=== PATIENT | male | born 1960 | race Two or more races ===

== ENCOUNTER 2020-02-12 11:19 | Inpatient (IN) | payer OTHER ==
[~2020-02-12] VITALS: Ht 172.7 cm; Wt 116.4 kg
[2020-02-12] MEDS ORDERED: SODIUM CHLORIDE 0.9% 500 ML IVB ONE (11:32)
[2020-02-12 12:04] LABS: Basophils # (auto) 0 10 ^3/uL (0-0.2); Basophils % (auto) 0.2 % (0.0-2.0); Eosinophils # (auto) 0 10 ^3/uL (0-0.8); Eosinophils % (auto) 0.3 % (0.0-7.0); Hematocrit 42.1 % (41.0-53.0); Hemoglobin 14.2 g/dL (13.5-17.5); Lymphocytes # (auto) 2.5 10 ^3/uL (0.4-5.4); Lymphocytes % (auto) 22.5 % (10.0-50.0); Mean Corpuscular Hemoglobin 29.9 pg (28.0-32.0); Mean Corpuscular Hgb Conc. 33.8 g/dL (32.0-36.0); Mean Corpuscular Volume 88.3 fL (80.0-100.0); Monocytes # (auto) 0.8 10 ^3/uL (0-1.3); Monocytes % (auto) 7.4 % (0.0-12.0); Neutrophils # (auto) 7.7 10 ^3/uL (1.6-8.6); Neutrophils % (auto) 69.6 % (37.0-80.0); Nucleated Red Blood Cells % 0.1 %; Platelet Count (auto) 303 10^3/uL (140-450); Red Blood Cells 4.77 10^6/uL (4.5-5.90); Red Cell Distribution Width 13.8 % (11.8-14.3)
[2020-02-12 12:20] LABS: Albumin 3.8 g/dL (3.4-5.0); Anion Gap 8 (5-15); Blood Alcohol < 3.0 mg/dL (0-5); Blood Urea Nitrogen 13 mg/dL (7-18); Calcium 8.6 mg/dL (8.5-10.1); Carbon Dioxide 22 mmol/L (21-32); Chloride 108 mmol/L (98-107); Glucose 110 mg/dL (74-106); Magnesium 2.4 mg/dL (1.6-2.6); Sodium 138 mmol/L (136-145)
[2020-02-12 12:24] LABS: Alanine Aminotransferase 23 U/L (16-61); Alkaline Phosphatase 73 U/L (45-117); Aspartate Aminotransferase 20 U/L (15-37); BUN/Creatinine Ratio 10.7; Bilirubin, Total 0.6 mg/dL (0.2-1.0); GFR African American 79 mL/min; GFR Non-African American 66 mL/min; Total Protein 8.3 g/dL (6.4-8.2)
[2020-02-12 13:34] LABS: Urine Bacteria NONE SEEN /hpf (None Seen); Urine Blood Negative /uL (Negative); Urine Hyaline Cast FEW /lpf (0 - 2); Urine Mucus FEW (None Seen); Urine Specific Gravity 1.024 (1.001-1.035); Urine Sperm PRESENT /hpf (None Seen); Urine WBC 11 /hpf (0 - 3)
[2020-02-12 13:49] LABS: Alcohol, Urine < 3.0 mg/dL (0-10); Amphetamine Screen, Urine NEGATIVE (NEGATIVE); Barbiturate Scree,Urine NEGATIVE (NEGATIVE); Benzodiazephine Screen, Urine NEGATIVE (NEGATIVE); Cannabinoid Screen, Urine NEGATIVE (NEGATIVE); Cocaine Screen, Urine NEGATIVE (NEGATIVE); Opiate Scree,Urine NEGATIVE (NEGATIVE); Phencyclidine Screen, Urine NEGATIVE (NEGATIVE)
[2020-02-12] MEDS ORDERED: KETOROLAC TROMETH 30 MG/ML 1ML VIAL IV ONE (14:15)
[2020-02-12] MEDS ORDERED: NITROGLYCERIN 0.4 MG SL TAB SL PRN (14:30)
[2020-02-12] MEDS ORDERED: MORPHINE SULF INJ 2 MG/ML SYRINGE 1ML IV PRN (14:30)
[2020-02-12 16:10] VITALS: BP 154/94
[2020-02-12] MEDS: HYDROcodone-ACET 10/325MG TAB PO PRN (18:01)
[2020-02-12 22:00] VITALS: BP 141/88
[2020-02-13] VITALS (11 sets, daily range): BP systolic 129–178; BP diastolic 68–111
[2020-02-13] MEDS: HYDROcodone-ACET 10/325MG TAB PO PRN ×2 (03:48→08:17)
[2020-02-13] MEDS ORDERED: IOHEXOL 350 MG/ML 100ML IJ ONE (10:54)
[2020-02-13] MEDS ORDERED: ADENOSINE 97 MG in GIVE UN-DILUTED 0 ML IV STA (12:08)
[2020-02-13] MEDS: TEMAZEPAM 15 MG CAP PO PRN (22:13)
[2020-02-14 05:00] VITALS: BP 130/80
[2020-02-14] MEDS: LACTULOSE 20Gm/30ML SOLN PO SCH ×5 (06:44→18:38)
[2020-02-14] MEDS: HYDROcodone-ACET 10/325MG TAB PO PRN ×2 (06:45→18:23)
[2020-02-14 09:00] VITALS: BP 153/88
[2020-02-14 13:00] VITALS: BP 141/74
[2020-02-14 16:27] VITALS: BP 149/90
[2020-02-14 19:30] VITALS: BP 159/86
[2020-02-14] MEDS: TEMAZEPAM 15 MG CAP PO PRN (21:32)
[2020-02-14 22:00] VITALS: BP 159/86
[2020-02-15 05:00] VITALS: BP 129/81
[2020-02-15] MEDS: LACTULOSE 20Gm/30ML SOLN PO SCH ×3 (05:20→12:00)
[2020-02-15] MEDS: HYDROcodone-ACET 10/325MG TAB PO PRN ×3 (05:20→16:13)
[2020-02-15 09:00] VITALS: BP 149/81
[2020-02-15 13:00] VITALS: BP 145/96
[2020-02-15 17:00] VITALS: BP 157/74
[2020-02-15] MEDS ORDERED: TEMA15CA91 PO (17:05)
== END 2020-02-15 17:45 | DRG 641 ==
LOC: EDBD 11:19 → ER 11:19 → EEVIPCON 11:19 → TELE 11:20 → TELE-WESTW 15:52
PROVIDERS: ADMIT Internal Medicine; ATTEND Internal Medicine
DX: E16.2 Hypoglycemia, unspecified (principal); R55 Syncope and collapse; E66.9 Obesity, unspecified; S00.03XA Contusion of scalp, initial encounter; Y93.01 Activity, walking, marching and hiking; Z80.8 Family history of malignant neoplasm of other organs or systems; Y92.89 Other specified places as the place of occurrence of the external cause; Y99.8 Other external cause status; Z68.37 Body mass index [BMI] 37.0-37.9, adult
CPT/HCPCS: 36415; 70450; 70551; 71275; 73080; 78452; 80053; 80307; 80320; 81001; 83735; 84443; 84484; 85025; 93005; 93017; 95819; G0378; J0153; J1885

== ENCOUNTER 2021-04-21 17:28 | Emergency (ER) | payer OTHER ==
[~2021-04-21] VITALS: Ht 172.7 cm; Wt 113.4 kg
[~2021-04-21 17:28] MED LIST: TEMA15CA2 PO
[2021-04-21 19:43] LABS: Urine Bacteria NONE SEEN /hpf (None Seen); Urine Blood Negative /uL (Negative); Urine Mucus FEW (None Seen); Urine Specific Gravity 1.022 (1.001-1.035); Urine WBC 12 /hpf (0 - 3)
[2021-04-21 20:49] LABS: Basophils # (auto) 0 10 ^3/uL (0-0.2); Basophils % (auto) 0.4 % (0.0-2.0); Eosinophils # (auto) 0 10 ^3/uL (0-0.8); Lymphocytes # (auto) 3.5 10 ^3/uL (0.4-5.4); Monocytes # (auto) 1.1 10 ^3/uL (0-1.3); Red Cell Distribution Width 14.2 % (11.8-14.3)
[2021-04-21 21:01] LABS: Albumin 3.9 g/dL (3.4-5.0); Calcium 8.7 mg/dL (8.5-10.1); Potassium 3.4 mmol/L (3.5-5.1)
[2021-04-21 21:02] LABS: Eosinophils % (auto) 0.2 % (0.0-7.0); Hematocrit 38.8 % (41.0-53.0); Hemoglobin 13.6 g/dL (13.5-17.5); Lymphocytes % (auto) 27.1 % (10.0-50.0); Mean Corpuscular Hemoglobin 30.5 pg (28.0-32.0); Mean Corpuscular Hgb Conc. 35.1 g/dL (32.0-36.0); Mean Corpuscular Volume 86.8 fL (80.0-100.0); Monocytes % (auto) 8.8 % (0.0-12.0); Neutrophils # (auto) 8.2 10 ^3/uL (1.6-8.6); Neutrophils % (auto) 63.5 % (37.0-80.0); Red Blood Cells 4.46 10^6/uL (4.5-5.90); White Blood Cell 12.9 10^3/uL (4.4-10.8)
[2021-04-21 21:04] LABS: Total Protein 8.3 g/dL (6.4-8.2)
[2021-04-21] MEDS ORDERED: KETOROLAC TROMETH 30 MG/ML 1ML VIAL IV ONE (21:30)
[2021-04-21] MEDS ORDERED: IOHEXOL 300 MG/ML 100ML BOTTLE IJ ONE (22:00)
[2021-04-22] MEDS ORDERED: cefTRIAXone 1GM/50ML D5W 50 ML IV ONE (00:15)
[2021-04-22 01:30] VITALS: BP 130/87
== END 2021-04-22 01:36 | disposition home or self-care (01) ==
LOC: ER 17:30 → EEVIPCON 17:30 → ER 04-22 01:36
DX: R10.11 Right upper quadrant pain (principal); R11.0 Nausea; K21.9 Gastro-esophageal reflux disease without esophagitis; Z79.899 Other long term (current) drug therapy
CPT/HCPCS: 36415; 74177; 80053; 81001; 82150; 83690; 85025; 87426; 96365; 96375; 99285; J0696; J1885; Q9967